=== PATIENT | male | born 1960 | race Caucasian/White ===

== ENCOUNTER 2023-07-21 16:04 | Emergency (ER) | payer MEDICAID, SELFPAY ==
[2023-07-21 16:11] VITALS: BP 186/92; PULSE 92; O2SAT 94
[2023-07-21 16:37] VITALS: BP 146/77; PULSE 86; RESP 16; TEMP 36.7; O2SAT 94; BMI 32.0
--- NOTE | 2023-07-21 16:41 | ED.GENADULT ---
HPI - General Adult General Chief complaint: Abdominal Pain Stated complaint: RLQ PAIN, BLOOD IN STOOL Time Seen by Provider: 07/21/23 21:39 Source: patient and old records reviewed Mode of arrival: EMS Limitations: no limitations History of Present Illness HPI narrative: 63 yo male with PMH of ETOH abuse here with c/o RLQ pain radiating into back then down leg for 1+ month he notes he was told it was his pancreas so he came today to get it checked out. He also notes he saw blood on toilet paper when he was straining MD complaint: abdominal pain Onset (ago): month(s) (1) Location: abdomen Radiation: back and distal Severity: mild Quality: aching Pain Consistency: intermittent Relieving factors: none Exacerbating factors: movement Associated symptoms: other (strained and saw blood on tissue) Treatments prior to arrival: none Related Data Allergies Allergy/AdvReac Type Severity Reaction Status Date / Time No Known Allergies Allergy Verified 07/21/23 16:43 Review of Systems Review of Systems: Constitutional : No Weight loss, No Fever, No Chills ENT/Mouth : No sore throat, No Rhinorrhea Eyes: No Swelling, No Redness Cardiovascular : No Chest Pain, No SOB, NoEdema Respiratory : No Cough, No Sputum, No Wheezing Gastrointestinal : no Nausea, no Vomiting, no Diarrhea, positive abdominal Pain, No Hematochezia, No Melena Genitourinary : No Dysuria, No Urinary Frequency, No Hematuria, No Urgency Musculoskeletal : No joint pain, No Myalgias, No Joint Swelling Skin : No Skin Lesions, No rash Neuro : No Weakness, No Numbness, No Dizziness, No Headache Psych : No Anxiety/Panic, No Depression All other systems reviewed and are negative. [facility] Past Medical History Attestation statement: The following information was validated with the patient. Source: old records reviewed Medical History Alcohol abuse Social History Social History Advance Directives: No Advance Directives Information Provided: No Physical Exam ED Vital Signs: Vital Signs - 24 hr 07/21/23 16:37 07/21/23 20:59 Temperature 98.0 F 98.0 F Pulse Rate 86 90 Respiratory Rate 16 16 Blood Pressure 146/77 H 167/75 H Pulse Oximetry 94 100 Oxygen Delivery Method Room Air Room Air BMI result Body Mass Index 32.0 Appearance: Alert. Oriented X3. No acute distress. Eyes: Pupils equal, round and reactive to light. ENT: Pharynx normal. Neck: Normal inspection. Neck supple. CVS: Normal heart rate and rhythm. Pulses normal. Respiratory: No respiratory distress. Breath sounds normal. Abdomen: Soft and nontender. Obese Skin: Skin warm and dry. Normal skin color. Normal skin turgor. Extremities: No lower extremity edema. No calf ttp Neuro: Oriented X 3. No motor deficit. No sensory deficit. Course Course Course Narrative: RME performed by Margret Villagomez PA-C. Patient is a 63 year old assigned male at presenting to the emergency department with low back pain and dark stools over the last few months. Detailed physical exam and review of systems are deferred to the pneumatic press hand. Labs and swabs ordered. Patient placed back in the waiting room pending room availability and results. Medical Decision Making Medical Decision Making [facility] Narrative: 63 yo male with no sig PMH here with c/o RLQ pain x 1 month worried it was his pancreas due to ETOH abuse he denies n/v/d notes he did strain yesterday and saw blood on toilet paper only at this time labs, CT scan fo rmass ordered. Patient declines imaging at this time and states he has to leave and reports he will return. Differential Diagnosis Differential Diagnoses: The differential diagnosis associated with the presentation includes abdominal pain, appendicitis, constipation, ETOH abuse, renal colic Admission/Observation Consideration of admission/observation: Escalation of care including admission/observation considered left prior to completing treatment needed to catch a bus Lab Data [facility] Lab Attestation statement: I reviewed the patient's lab results. 07/21/23 17:17 07/21/23 17:18 Labs: Lab Results 07/21/23 07/21/23 07/21/23 Range/Units 17:17 17:18 21:07 WBC 9.6 (4.8-10.8) X10*3/uL RBC 5.88 H (4.60-5.80) X10*6/uL Hgb 17.1 (14.0-18.0) g/dl Hct 50.8 (42.0-52.0) % MCV 86.4 (80.0-98.0) fL MCH 29.1 (27.0-33.0) pg MCHC 33.7 (31.0-36.0) g/dl RDW 13.8 (11.0-16.0) % Plt Count 223 (160-400) X10*3/uL MPV 9.0 L (9.4-12.4) fL Immature Gran % (Auto) 0.2 (0.0-0.4) % Neut % (Auto) 62.5 (45-73) % Lymph % (Auto) 31.0 (20-40) % Harvey % (Auto) 5.7 (2-11) % Eos % (Auto) 0.4 (0-4) % Baso % (Auto) 0.2 (0-2) % Lymph # (Auto) 3.0 (1.2-4.9) X10*3/uL Harvey # (Auto) 0.6 (0.1-1.2) X10*3/uL Eos # (Auto) 0.0 (0.0-0.4) X10*3/uL Baso # (Auto) 0.0 (0.0-0.2) X10*3/uL Abs Immat Gran (auto) 0.02 (0.00-0.03) X10*3/uL Absolute Neuts (auto) 6.0 (2.0-8.3) x10*3/uL Absolute Nucleated RBC 0.000 (0.0-0.012) X10*3/uL Nucleated RBC % (auto) 0.0 (0.0-0.2) /100WBC Sodium 143 (135-145) mmol/L Potassium 3.2 L (3.3-5.1) mmol/L Chloride 109 H (96-108) mmol/L Carbon Dioxide 22 (22-29) mmol/L Anion Gap 15 (12-20) BUN 10 (9-16) mg/dL Creatinine 1.12 (0.5-1.4) mg/dL Estim Creat Clear Calc 72.7 Estimated GFR > 60 Random Glucose 119 H (60-115) mg/dL Calcium 10.0 (8.4-10.2) mg/dL Magnesium 2.1 (1.6-2.6) mg/dL Total Bilirubin 0.5 (0.0-1.0) mg/dL AST 19 (5-37) U/L ALT 23 (0-40) U/L Alkaline Phosphatase 88 (39-117) U/L Total Protein 8.0 (6.5-8.0) g/dL Albumin 4.2 (3.5-5.0) g/dL Lipase 29 (8-78) U/L Urine Color Yellow Urine Appearance Clear Urine pH 5.5 (5.0-9.0) Ur Specific [place] 1.020 (1.005-1.025) Urine Protein Negative (Neg-Trace) mg/dL Urine Glucose (UA) Negative (Negative) mg/dL Urine Ketones Negative (Negative) mg/dL Urine Blood Negative (Negative) Urine Nitrite Negative (Negative) Ur Leukocyte Esterase Trace H (Negative) Urine RBC 0-2 (0-2) /HPF Urine WBC 0-5 (0-5) /HPF Ur Squamous Epith Cells 0-2 (0-2) /HPF Urine Bacteria None Seen (None Seen) Hyaline Casts 0-2 (0-2) /LPF Influenza Type A (PCR) NEGATIVE (Negative) Influenza Type B (PCR) NEGATIVE (Negative) RSV RNA Qual (PCR) NEGATIVE (Negative) SARS-CoV-2 RNA (RT-PCR) NEGATIVE (Negative) External Record Review External record reviewed: Inpatient record Discharge Plan Discharge Clinical Impression: Acute hypokalemia Abdominal pain Qualifiers: Abdominal location: right lower quadrant Qualified Code(s): R10.31 - Right lower quadrant pain Patient Disposition: Left W/O Completing Treatment Print Language: Ukrainian
[2023-07-21 17:23] LABS: MANUAL DIFF FLAG NO
[2023-07-21 17:28] LABS: Basophils Percent Auto 0.2 % (0-2); Eosinophils Percent Auto 0.4 % (0-4); Hematocrit 50.8 % (42.0-52.0); Hemoglobin 17.1 g/dl (14.0-18.0); Imm Gran Abs Auto 0.02 X10*3/uL (0.00-0.03); Imm Gran Pct Auto 0.2 % (0.0-0.4); Mean Corpuscular HGB Conc 33.7 g/dl (31.0-36.0); Mean Corpuscular Hemoglobin 29.1 pg (27.0-33.0); Mean Corpuscular Volume 86.4 fL (80.0-98.0); Monocytes Absolute Auto 0.6 X10*3/uL (0.1-1.2); Monocytes Percent Auto 5.7 % (2-11); Neutrophils Percent Auto 62.5 % (45-73); Platelet Count 223 X10*3/uL (160-400); Red Blood Count 5.88 X10*6/uL (4.60-5.80); Red Cell Distribution Width 13.8 % (11.0-16.0); White Blood Count 9.6 X10*3/uL (4.8-10.8)
[2023-07-21 17:40] LABS: Alanine Aminotransferase 23 U/L (0-40); Albumin Level 4.2 g/dL (3.5-5.0); Alkaline Phosphatase 88 U/L (39-117); Anion Gap 15 (12-20); Aspartate Amino Transferase 19 U/L (5-37); Bilirubin Total 0.5 mg/dL (0.0-1.0); Blood Urea Nitrogen 10 mg/dL (9-16); Carbon Dioxide 22 mmol/L (22-29); Chloride 109 mmol/L (96-108); Creatinine Clr Calc Pharmacy 72.7; Estimated Glomerular Filt Rate > 60; Glucose Random 119 mg/dL (60-115); Magnesium 2.1 mg/dL (1.6-2.6); Potassium 3.2 mmol/L (3.3-5.1); Sodium 143 mmol/L (135-145)
[2023-07-21 18:03] LABS: Influenza A PCR NEGATIVE (Negative); Influenza B PCR NEGATIVE (Negative); Resp Syncy Virus RNA Qual PCR NEGATIVE (Negative); SARS COV2 PCR INHOUSE NEGATIVE (Negative)
[2023-07-21 20:59] VITALS: BP 167/75; PULSE 90; RESP 16; TEMP 36.7; O2SAT 100
[2023-07-21 21:05] LABS: Lipase 29 U/L (8-78)
[2023-07-21 21:20] LABS: Appearance Urine Clear; Color Urine Yellow; Glucose Urine UA Negative (Negative); Leukocyte Esterase Urine Trace (Negative); Nitrite Urine Negative (Negative); PH 5.5 (5.0-9.0); UMIC TRIGGER UACC YES; Urine Blood Negative (Negative); Urine Ketones Negative (Negative); Urine Protein Negative (Neg-Trace)
[2023-07-21 21:28] LABS: Bacteria Urine None Seen (None Seen); Hyaline Casts Urine 0-2 /LPF (0-2); RBC Urine 0-2 /HPF (0-2); Squamous Epithelial Cell Urine 0-2 /HPF (0-2); WBC Urine 0-5 /HPF (0-5)
--- NOTE | 2023-07-21 22:10 | PC.NURSE ---
pt told provider he had to leave due to having to catch the bus
== END 2023-07-21 22:24 | disposition left against medical advice (07) ==
PROVIDERS: Physician Assistant Medical; Emergency Provider Emergency Medicine
DX: R10.31 Right lower quadrant pain (principal); E87.6 Hypokalemia; F10.10 Alcohol abuse, uncomplicated
CPT/HCPCS: 0241U; 80053; 81001; 83690; 83735; 85025; 99283; 99284

== ENCOUNTER 2023-07-26 18:16 | Outpatient (REF) | payer MEDICAID, SELFPAY ==
[2023-07-26 18:34] LABS: Appearance Urine Turbid; Color Urine Yellow; Glucose Urine UA Negative (Negative); Leukocyte Esterase Urine Negative (Negative); Nitrite Urine Negative (Negative); PH 5.5 (5.0-9.0); Specific Gravity - Urine >= 1.030 (1.005-1.025); Urine Blood Negative (Negative); Urine Ketones Negative (Negative); Urine Protein Negative (Neg-Trace)
[2023-07-26 18:37] LABS: Bacteria Urine None Seen (None Seen); Hyaline Casts Urine 0-2 /LPF (0-2); Squamous Epithelial Cell Urine 0-2 /HPF (0-2); WBC Urine 0-5 /HPF (0-5)
[2023-07-26 18:51] LABS: Other Crystals Urine Present; RBC Urine 0-2 /HPF (0-2)
== END 2023-07-26 18:17 | disposition home or self-care (01) ==
LOC: HO.HHCLNP 18:16
PROVIDERS: Visit Provider Emergency Medicine
DX: R10.31 Right lower quadrant pain (principal)
CPT/HCPCS: 81001

== ENCOUNTER 2023-08-09 11:14 | Outpatient (REF) | payer MEDICAID, SELFPAY ==
--- NOTE | ~2023-08-09 | XR_ITS ---
EXAMINATION: XR LUMBOSACRAL SPINE CLINICAL INFORMATION: Arthritis of right hip, acute right-side low back pain without sciatica. Patient states pain for 2 months. COMPARISON: None available. TECHNIQUE: 5 views of the lumbosacral spine. FINDINGS: Mild dextroscoliosis of the lumbar spine. Bilateral sacroiliac joints are symmetric with mild degenerative changes. Atherosclerotic aortic calcifications. Facet arthritis in the lower lumbar spine. Multilevel lumbar spondylosis with mild loss of disc space height at L4-L5 and L5-S1. XR/XR lumbar spine 2-3V IMPRESSION: 1. Multilevel lumbar spondylosis with mild loss of disc space height at L4-L5 and L5-S1. 2. Facet arthritis in the lower lumbar spine.
== END 2023-08-09 11:15 | disposition home or self-care (01) ==
LOC: HO.HHCX 11:14
PROVIDERS: Visit Provider Internal Medicine
DX: M54.50 Low back pain, unspecified (principal)
CPT/HCPCS: 72100

== ENCOUNTER 2023-08-10 11:18 | Outpatient (REF) | payer MEDICAID, SELFPAY ==
[2023-08-10 13:30] LABS: MANUAL DIFF FLAG NO
[2023-08-10 13:50] LABS: Basophils Percent Auto 0.4 % (0-2); Eosinophils Absolute Auto 0.1 X10*3/uL (0.0-0.4); Eosinophils Percent Auto 1.1 % (0-4); Hematocrit 50.6 % (42.0-52.0); Hemoglobin 16.3 g/dl (14.0-18.0); Imm Gran Abs Auto 0.01 X10*3/uL (0.00-0.03); Imm Gran Pct Auto 0.1 % (0.0-0.4); Lymphocytes Absolute Auto 2.5 X10*3/uL (1.2-4.9); Mean Corpuscular HGB Conc 32.2 g/dl (31.0-36.0); Mean Corpuscular Hemoglobin 28.6 pg (27.0-33.0); Mean Corpuscular Volume 88.8 fL (80.0-98.0); Mean Platelet Volume 10.1 fL (9.4-12.4); Monocytes Absolute Auto 0.5 X10*3/uL (0.1-1.2); Monocytes Percent Auto 6.1 % (2-11); Neutrophils Absolute Auto 4.3 x10*3/uL (2.0-8.3); Neutrophils Percent Auto 58.3 % (45-73); Platelet Count 231 X10*3/uL (160-400); Red Cell Distribution Width 13.8 % (11.0-16.0); White Blood Count 7.4 X10*3/uL (4.8-10.8)
[2023-08-10 14:16] LABS: Amylase 57 U/L (28-100); Cholesterol 211 mg/dL (<200); Gamma Glutamyl Transpeptidase 58 U/L (11-51); HDL Cholesterol 28 mg/dL (>40); TSH reflex Free T4 1.06 uIU/mL (0.32-4.0); Triglycerides 421 mg/dL (<150); Vitamin D 25-OH Total 20.1 ng/mL (>30)
[2023-08-10 14:37] LABS: Lipase 31 U/L (8-78)
[2023-08-10 15:30] LABS: Reflex LDLD? Yes
[2023-08-11 08:24] LABS: HBS Num1 > 1000.00 mIU/mL (0-7.99); HBc Num1 2.14 S/CO (0.00-0.79); HBsAGNum1 0.37 S/CO (0.00-0.99); Hepatitis A Antibody IgM 0.53 Index (0-0.79); Hepatitis B Surface Antigen Negative (Negative); ~HepC Num1 0.07 S/CO (0.00-0.79); ~Hepatitis A Antibody IgM Nonreactive (Nonreactive); ~Hepatitis B Surface Antibody REACTIVE (Nonreactive); ~Hepatitis C Antibody Nonreactive (Nonreactive)
[2023-08-11 08:53] LABS: LDL Cholesterol Direct 80 mg/dL (<100)
[2023-08-11 09:28] LABS: HBc Num2 2.11 S/CO; Hepatitis B Core Antibody Reactive (Nonreactive)
== END 2023-08-10 11:19 | disposition home or self-care (01) ==
LOC: HO.HHCL 11:18
PROVIDERS: Emergency Medicine; Visit Provider Internal Medicine
DX: R10.31 Right lower quadrant pain (principal); F10.90 Alcohol use, unspecified, uncomplicated; M16.11 Unilateral primary osteoarthritis, right hip; I10 Essential (primary) hypertension
CPT/HCPCS: 36415; 80061; 82150; 82306; 82977; 83690; 83721; 84443; 85025; 86704; 86706; 86709; 86803; 87340

== ENCOUNTER 2023-09-19 12:21 | Outpatient (REF) | payer MEDICAID, SELFPAY ==
--- NOTE | ~2023-09-19 | XR_ITS ---
EXAMINATION: XR SHOULDER, LEFT CLINICAL INFORMATION: Arthritis of left shoulder, left shoulder pain. COMPARISON: None available. TECHNIQUE: AP external rotation, Grashey, scapular Y, and axillary views of the left shoulder. FINDINGS: The bones are intact. No fracture. Glenohumeral and acromioclavicular alignment is anatomic with mild narrowing of the glenohumeral joint space. There is mild to moderate narrowing of the acromioclavicular joint. No abnormal soft tissue calcifications. XR/XR shoulder LT min 2V IMPRESSION: Mild to moderate degenerative change of the acromioclavicular joint and mild degenerative change of the glenohumeral joint.
== END 2023-09-19 12:22 | disposition home or self-care (01) ==
LOC: HO.HHCX 12:21
PROVIDERS: Visit Provider Internal Medicine
DX: M19.012 Primary osteoarthritis, left shoulder (principal)
CPT/HCPCS: 73030

== ENCOUNTER 2023-10-04 13:48 | Outpatient (AMB) | payer MEDICAID, SELFPAY ==
--- NOTE | 2023-10-04 13:52 | MHC.OFFVIS ---
Vital Signs 10/04/23 14:06 Height 5 ft 6 in Weight 195 lb 6 oz BMI 31.5 BP 150/80 H Blood Pressure Location Lt brachial Position Sitting Respiration 16 Pulse 94 Pulse Source Pulse Oximeter Pulse Oximetry (%) 95 Oxygen Delivery Method Room Air Intake Visit Reasons: Right Hip Intake Note: Patient comes in for initial visit was referred by primary care. Reports pain 11/24. Allergies No Known Allergies Allergy (Verified 07/21/23 16:43) HPI Comments Details: Antione is very pleasant 63 years old gentleman who presents in my office with complains on pain in the projection of the right sacroiliac joint as well as pain in the left shoulder. He reports that his pain started 7 years ago denies any inciting events. He denies connection to car accident or work injury. He can not sleep normally because of his pain he can not do activities of daily living he can not take care of himself he can not function normally he is on permanent disability. He reports his pain is worse at night. He reports that in terms of tissue damage his pain is sharp, cramping, aching, radiating, and tight sensation. He is taking Tylenol for his pain. He never had any chiropractic manipulations he had physical therapy with no help. X-ray available in the chart and demonstrate moderate bilateral sacroiliac joint changes. The x-ray of the shoulder available in our chart in [facility], however it was not read yet. His past medical history significant for hypertension asthma chronic pancreatitis and chronic liver disease he denies any surgery or prolonged hospitalization. He smokes cigarettes half pack a day for the past 20 years. He drinks lots of soda he denies drinking alcohol he says that he stopped 3 years ago. He denies recreational drugs. [facility] Medical History Alcohol abuse Review of Systems Const Denies chills ENT Reports Normal hearing present Card Denies chest pain, Denies chest pain at rest and Denies chest pain with activity Resp Denies chest congestion, Denies cough and Denies hemoptysis GI Denies abdominal pain Denies urinary incontinence Musc Denies as per HPI and Denies back pain Neuro Reports Normal hearing present, Denies Abnormal speech present, Denies confusion and Denies Sensory deficit (Neuro) Psych Denies confusion, Denies depression and Denies irritability Physical Exam Const General: no acute distress; No confusion Orientation/consciousness: patient oriented x3 and No confusion Eyes General: appearance normal, both eyes and all related structures Pupils: Equal, round and reactive pupils present EOM: EOMs intact bilaterally Neck Neck: Yes full ROM Chest Chest palpation & inspection: normal inspection of the chest Resp Effort & Inspection: normal respiratory effort, able to speak in complete sentences, normal respiratory pattern, no audible wheezes and no cough Cardio Jugular venous distension: no JVD GI Inspection: Yes normal to inspection Back/Spine/Pelvis Other: Able to stand on bilateral tiptoes in bilateral heels without difficulty able to flex himself forward to about 15 degrees only due to severe pain in the lower lumbar spine. Able to flex himself backwards without difficulty. Mamadou test is positive on the right, Gaenslen test is positive on the right, pelvic compression test is positive on the right but pelvic distraction test is negative. Neuro General: patient oriented x3, gait normal and No confusion Cranial nerves: Yes CN's II-XII intact bilaterally, Yes Equal, round and reactive pupils present, Yes Normal hearing present and Yes Ability to bilaterally elevate shoulders present Speech: No Abnormal speech present Gait exam (Neuro): Normal gait present Motor exam (neuro): 5/5 motor strength present throughout Sensory Exam: No Sensory deficit (Neuro) Extrem Other: Limited range of motion of the left shoulder unable to lift arm above the shoulder line. The rest of the range of motion is not affected. General: No pedal edema Psych Speech and movement: Normal speech and movement present Affect: normal affect Attitude: cooperative Thought process: Normal thought process present Thought content: Normal thought content present Insight: Good insight present (Psych) Judgement: Good judgement present (Psych) Results Reviewed Results Reviewed: On the x-ray of the lumbar spine available from [facility] there are mild the degenerative changes in the projection of bilateral sacroiliac joints as well as degenerative changes in the lumbar spine. Assessment & Plan Assessment & Plan (1) Osteoarthritis of left shoulder: Code(s): M19.012 - Primary osteoarthritis, left shoulder Category: Medical (2) Sacroiliitis: Code(s): M46.1 - Sacroiliitis, not elsewhere classified Category: Medical (3) Chronic pain syndrome: Code(s): G89.4 - Chronic pain syndrome Category: Medical (4) Sacroiliac joint dysfunction of right side: Code(s): M53.3 - Sacrococcygeal disorders, not elsewhere classified Category: Medical Plan The x-ray of the left shoulder is made for this patient however it has not read by radiologist. We will leave it until the radiologist will read the x-ray however I suspect that there will be some degenerative changes of the left glenohumeral joint. As of the right sacroiliitis I will schedule him for diagnostic sacroiliac joint injection and I will offer him further on treatment for sacroiliac joint injection. Unfortunately patient is a smoker and our options move could be limited if he could stop smoking we could consider PNS of sacroiliac joint as well as fusion of the sacroiliac joint. Coding Level of Care Code New Pt Level 3 (09186) Diagnoses Osteoarthritis of left shoulder M19.012 Sacroiliitis M46.1 Chronic pain syndrome G89.4 Sacroiliac joint dysfunction of right side M53.3
[2023-10-04 14:06] VITALS: BP 150/80; PULSE 94; RESP 16; O2SAT 95; BMI 31.5
== END 2023-10-04 14:13 | disposition home or self-care (01) ==
PROVIDERS: PCP Internal Medicine; Referring Provider Internal Medicine; Visit Provider Anesthesiology
DX: M19.012 Primary osteoarthritis, left shoulder (principal); M46.1 Sacroiliitis, not elsewhere classified; G89.4 Chronic pain syndrome; M53.3 Sacrococcygeal disorders, not elsewhere classified
CPT/HCPCS: 99203

== ENCOUNTER → 2023-10-04 13:48 | Outpatient (BNVA) | payer MEDICAID, SELFPAY | PROVIDERS: PCP Internal Medicine; Visit Provider Anesthesiology | DX: M19.012 Primary osteoarthritis, left shoulder (principal); M46.1 Sacroiliitis, not elsewhere classified; M53.3 Sacrococcygeal disorders, not elsewhere classified; G89.4 Chronic pain syndrome | CPT/HCPCS: 99202 ==

== ENCOUNTER 2023-12-14 10:34 | Outpatient (AMB) | payer MEDICAID, SELFPAY ==
[2023-12-14 10:52] VITALS: BMI 31.5
--- NOTE | 2023-12-14 10:52 | MHC.OFFVIS ---
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 Patient reports that he has had ongoing left shoulder pain for about 2 years now. He has tried and failed physical therapy with no relief. He feels pain with he raises the arm above shoulder, behind the back as well as with lifting, pushing and pulling. 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 Patient reports that he has had ongoing left shoulder pain for about 2 years now. He has tried and failed physical therapy with no relief. He feels pain with he raises the arm above shoulder, behind the back as well as with lifting, pushing and pulling. [facility] Medical History Alcohol abuse Social History (Updated 12/14/23 @ 10:54 by Naye Reynoso [facility]) Current occupational status: unemployed Physical Exam Vital Signs: BMI result Body Mass Index 31.5 Extrem Other: Positive Chacon and Neer Pain in the mid arc of abduction Negative empty can Full passive range of motion Office Procedures Joint Injection/Aspiration Joint Injection/Aspiration Details: Injected 1 mL of Decadron and 3 mL 1% lidocaine and 3 mL of 0.25% Marcaine. Site was prepped using aseptic technique. Patient tolerated the procedure well. Primary Site: left shoulder Approach Used: posterolateral Coding 62804 - Large joint Procedure code (CPT) selection complete Results Reviewed Results Reviewed: I personally reviewed relevant radiographs. Mild glenohumeral OA Assessment & Plan Assessment & Plan (1) Rotator cuff impingement syndrome: Code(s): M75.40 - Impingement syndrome of unspecified shoulder Category: Medical Plan: This is a 63-year-old gentleman with rotator cuff and pin Espino syndrome of the left shoulder. He has tried physical therapy with no benefit. I recommend injection. Injection was performed today without difficulty. If he has no resolution we can consider further imaging or repeat injections in at least 3 months. Coding Level of Care Code New Pt Level 3 (26488) Diagnoses Rotator cuff impingement syndrome M75.40 CPT Codes Coding - 02720 Large joint: 85444 - Large joint ([id number])
== END 2023-12-14 12:11 | disposition home or self-care (01) ==
PROVIDERS: PCP Internal Medicine; Visit Provider Orthopaedic Surgery
DX: M75.42 Impingement syndrome of left shoulder (principal)
CPT/HCPCS: 20610; 99203

== ENCOUNTER → 2023-12-14 10:34 | Outpatient (BNVA) | payer MEDICAID, SELFPAY | PROVIDERS: PCP Internal Medicine; Visit Provider Orthopaedic Surgery | DX: M75.40 Impingement syndrome of unspecified shoulder (principal) | CPT/HCPCS: 20610; 99202; J0665; J1100 ==

== ENCOUNTER 2023-12-20 10:12 | Outpatient (REF) | payer MEDICAID, SELFPAY ==
[2023-12-20 11:52] LABS: HBS Num1 > 1000.00 mIU/mL (0-7.99); HBc Num1 1.89 S/CO (0.00-0.79); HBsAGNum1 0.24 S/CO (0.00-0.99); Hepatitis B Surface Antigen Negative (Negative); ~HepC Num1 0.09 S/CO (0.00-0.79); ~Hepatitis A Antibody IgM Nonreactive (Nonreactive); ~Hepatitis B Surface Antibody REACTIVE (Nonreactive); ~Hepatitis C Antibody Nonreactive (Nonreactive)
[2023-12-20 12:50] LABS: HBc Num2 1.74 S/CO; Hepatitis B Core Antibody Reactive (Nonreactive)
== END 2023-12-20 10:13 | disposition home or self-care (01) ==
LOC: HO.HHCL 10:12
PROVIDERS: Visit Provider Internal Medicine
DX: E78.1 Pure hyperglyceridemia (principal)
CPT/HCPCS: 36415; 86704; 86706; 86709; 86803; 87340

== ENCOUNTER 2025-02-25 13:30 | Outpatient (REF) | payer MEDICAID, SELFPAY ==
--- OUTSIDE RECORDS SUMMARY | 2025-02-25 15:06 | XMS_ITS | Clinical Summary ---
Author Organization [employer] Address [address] [facility] [address] [place] [address] Care Team Providers Care Tank Bottom Assembler Name Role Phone Lakeshia Smith MD Primary Care Provider + Allergies Active Allergy Reactions Criticality Noted Date Comments Pineapple Angioedema 07/26/2023 Medications Blood Pressure Monitoring (Blood Pressure Cuff) misc Use daily as prescribed 1 each 4 Active Acetaminophen (Mapap) 500 MG capsuleIndicati ons:Arthrosis of left shoulder TAKE 1 TO 2 CAPSULES BY MOUTH EVERY 6 HOURS NEEDED FOR PAIN OR FEVER 30 capsule 5 Active Additional Information Patient not taking.Reported on 10/08/2024 lisinopril (Prinivil) 10 MG tablet Take 1 tablet (10 mg) by mouth Once per day. 90 tablet 5 10/09/19 26 Active fenofibrate (Tricor) 48 MG tablet Take 1 tablet (48 mg) by mouth Once per day. 90 tablet 5 10/09/19 26 Active omeprazole (PriLOSEC) [address] capsule TAKE 1 CAPSULE BY MOUTH EVERY DAY 90 capsule 1 5 Active Active Problems Problem Noted Date Diagnosed Date Vitreous floaters of left eye 10/08/2024 Assessment & Plan (10/08/2024 9:46 PM EDT): Pt seems to be describing 2 weeks of left eye floater -I called vision center [facility] today and pt got apt for tomorrow to be seen for compete vision exam -alarm signs and symptoms discussed w pt Sore throat 12/20/2023 Assessment & Plan (12/20/2023 10:27 AM EDT): - recommended to use Tylenol PRN and gargle with lul tea - gave pt covid testing kit if symptoms persist more than 3 days Illiteracy 09/15/2023 Assessment & Plan (09/15/2023 2:29 PM EDT): Patient brings correspondence that he thinks is important to a nearby resource center. Not interested on learning to read at this time, we'll continue to encourage literacy. Arthrosis of left shoulder 09/14/2023 Assessment & Plan (12/20/2023 10:25 AM EDT): - mildly improving status post steroid injection - recommended to do home PT exercises daily, apply heat to affected area - use Tylenol PRN and f/u with orthopedics Assessment & Plan (09/14/2023 10:53 PM EDT): Order Xrays and refer to orthopedics. Hypertriglyceridemia 08/14/2023 Assessment & Plan (09/14/2023 10:51 PM EDT): Tolerates tricor, will check LFTs today and adjust if needed. We discussed re rx options. Recommended moderate amount of exercise and increase consumption of fruit, vegetables, fish and high fiber foods. Should decrease consumption of highly saturated fats or trans fats. Vitamin D deficiency 08/14/2023 Abdominal pain 08/09/2023 Assessment & Plan (08/10/2023 8:55 AM EDT): Most likely PUD Restart omeprazole x 30d and fu May need H.Pilory check/ GI? Arthritis of right hip 08/09/2023 Assessment & Plan (12/20/2023 10:25 AM EDT): - recurrent. awaiting appt. for steroid injection from the pain clinic - I gave pt clinic information to call and f/u with appointment Assessment & Plan (09/14/2023 10:47 PM EDT): Has DJD, he did PT many years ago, doesn't want to go back. Refer to pain clinic Take tylenol prn Assessment & Plan (08/10/2023 8:57 AM EDT): Recommended tylenol, stretching exercises Order Xray and consider PT at next appt if sxs are not improved Anxiety and depression 07/26/2023 Assessment & Plan (09/14/2023 10:50 PM EDT): Doing well on meds, continue fu with psych prescriber, BUFFING [employer]EL [employer]AK[employer] Hugo Avoid use of ETOH or other recreational substances Primary hypertension 07/26/2023 Assessment & Plan (10/08/2024 9:46 PM EDT): From exam no major abnormal eye exam findings , normal visual page , normal eye movements , AMENA,no eye pain w palpation , normal complete neuro exam Mild elevated BP today -not took BP med today -advised to take meds consistently -refilled BP and cholesterol meds today and advised to f w PCP Assessment & Plan (09/14/2023 10:46 PM EDT): Uncontrolled, it could be related to LBP No change in meds today, will refer to orthopedics and fu BP Take Tylenol lprn for pain Assessment & Plan (08/10/2023 8:56 AM EDT): Uncontrolled. He's off meds Restart lisinopril at 10mg and fu in 4w with labs Counseled re low salt diet/increase moderate physical activity. Check home BP BIW and prn CP/ANDRES/PARSONS Counseled to quit smoking Alcohol use disorder 07/26/2023 Assessment & Plan (12/20/2023 10:16 AM EDT): - he has been sober for 1+ year, feels safe at home and is able to reach out for safety - pt will f/u PRN, pt will reach out to volleyball assistant coach when needed Assessment & Plan (08/10/2023 8:58 AM EDT): Sober x 3mo, sp Detox at [facility] . Declined AUD program referral Counseled re AA meetings FU next appt to address MH referral Encounters Date Type Department Care Team Description 01/05/2025 Refill [facility] MEDICINE [address] [place] [address] Lakeshia Smith MD from Last 3 Months Family History Medical History Relation Name Comments Gastric cancer Father Diabetes Mother htn Mother Relation Name Status Comments Father Mother Alive Social History Tobacco Use Types Packs/Day Years Used Date Smoking Tobacco: Every Day Cigarettes 1 45 Passive Smoke Exposure: Past Smokeless Tobacco: Never Tobacco Cessation:Ready to Q uit: Not Asked; Counseling Given: Not Answered Alcohol Use Standard Drinks/Week Comments Not Currently 0 (1 standard drink = 0.6 oz pur e alcohol) former abuse Depression Answer Date Recorded Patient Health Questionnaire-9 Score 9 08/09/2023 Patient Health Questionnaire-9 Score 9 08/09/2023 Last PHQ-9: Questionnaire Data Not on file 0 08/09/2023 Housing Stability Answer Date Recorded What is your housing situation today? I have lisa paulino 08/02/[address] you li ve. Do you have problems with any of the following? None of the above 08/02/2023 Food Insecurity Answer Date Recorded Within the past 12 months, y ou worried that your food would run out before you got money to buy more: Never True 08/02/2023 Within the past 12 months,th e food you bought just didn't last and you didn't have enough money to get more: Never True Transportation Answer Date Recorded In the past 12 months, has l ack of transportation kept you from medical appts, meetings, work or from getting things needed for daily living? No 08/02/2023 Utilities Answer Date Recorded In the past 12 months, has t he electric, gas, oil or water company threatened to shut off services in your home? No 08/02/2023 Depression Answer Date Recorded Patient Health Questionnaire-2 Score 6 08/09/2023 Sex and Gender Information Value Date Recorded Sex Assigned at Male 06/27/2023 12:46 PM EDT Legal Sex Male 12:41 PM EDT Gender Identity Male 06/27/2023 12:46 PM EDT Sexual Orientation Straight 06/27/2023 12 :46 PM EDT Last Filed Vital Signs Vital Sign Reading Time Taken Comments Blood Pressure 140/88 10/08/2024 11:32 AM EDT Pulse 86 10/08/2024 11:32 AM EDT Temperature 36.1 C (97 F) 10/08/2024 11:32 AM EDT Respiratory Rate 17 10/08/2024 11:32 AM EDT Oxygen Saturation 96% 12/20/2023 9:45 AM EDT Inhaled Oxygen Concentration - - Weight 88.5 kg (195 lb 3.2 oz) 10/08/2024 11:32 AM EDT Height 167.6 cm (5' 6 ) 10/08/2024 11:32 AM EDT Body Mass Index 31.51 10/08/2024 11:32 AM EDT Plan of Treatment Health Maintenance Due Date Last Done Comments CT Colonography 1962 Colonoscopy 1962 Colorectal Cancer Screening 1962 FIT DNA/Cologuard 1962 FIT 1962 FOBT 1962 Sigmoidoscopy 1962 Disability Screening 1962 Alcohol/Substance Use Screening 1974 DTaP/Tdap/Td Vaccines (1 - Tdap) 1981 Pneumococcal Vaccine: 50+ Years (1 of 2 - PCV) 1981 Lung Cancer Screening 01/09/2012 Zoster Vaccines (1 of 2) 01/09/2012 Depression Monitoring 02/08/2024 08/09/2023 , 08/09/2023 SDOH Screening 08/01/2024 08/02/2023 COVID-19 Vaccine (1 - 2023-2 5 season) 2024 Influenza Vaccine (#1) 2024 Tobacco Screening 10/14/2025 10/14/2024 Lipid Panel 08/09/2028 08/10/2023, 08/10/2023 RSV Patients and Patients Aged 60 years or older (1 - 1-dose 75+ series) 2037 HIV Screening Completed 11/08/2022 Hepatitis C Screening Completed 12/20/2023 , 08/10/2023 HIB Vaccines Aged Out No longer eligi ble based on patient's age to complete this topic HPV Vaccines Aged Out No longer eligi ble based on patient's age to complete this topic Hepatitis A Vaccines Aged Out No long er eligible based on patient's age to complete this topic Hepatitis B Vaccines Aged Out No long er eligible based on patient's age to complete this topic IPV Vaccines Aged Out No longer eligi ble based on patient's age to complete this topic Meningococcal B Vaccine Aged Out No l onger eligible based on patient's age to complete this topic Meningococcal Vaccine Aged Out No ed andres eligible based on patient's age to complete this topic RSV under 20 months Aged Out No longe r eligible based on patient's age to complete this topic Rotavirus Vaccines Aged Out No longer eligible based on patient's age to complete this topic Procedures Procedure Name Priority Date/Time Associated Diagnosis Comments HEPATITIS PANEL, GENERAL Routine 12/20/2023 10:15 AM EDT Hypertriglyceridemia LIPID PANEL WITH REFLEX TO DIRECT LDL Routine 08/10/2023 11:20 AM EDT Primary hypertension from Last 3 Months or Most Recently Relevant to Health Maintenance Results * Hepatitis Panel, General (12/20/2023 10:15 AM EDT) Hepatitis A IgM Nonreactive Nonreactive [facility] Comment:IgM antibodies to ANDRES V not detected; does not exclude earlyacute or recovered HAV infection. ~Hepatitis B Surface Antibody REACTIVE Nonreactive [facility] Comment:REACTIVE: > 11.99 mI U/mL Hepatitis B Core Antibody Reactive Nonreactive [facility] Comment:Presumptive evidence of anti-HBc. Hepatitis C Antibody Nonreactive Nonreactive [facility] Comment:Antibodies to HCV no t detected; does not exclude early acuteHCV infection. Hepatitis B Surface Ag Negative Negative [facility] Blood 12/20/2023 10:1 5 AM EDT 12/20/2023 11:03 AM EDT us Lakeshia Smith MD LAB BLOOD ORDERABLES Fin al Result [facility] [address] [place] [phone] * (ABNORMAL) Lipid Panel with Reflex to Direct LDL (08/10/2023 11:20 AM EDT) Triglycerides 421(H) <150 mg/dL [facility] Comment:Desirable Triglyceri de: less than 150 mg/dLBorderline High Triglyceride 150-199 mg/dLHigh Triglyceride: 200-499 mg/dLVery High Triglyceride: greater than or equal to 5OO mg/dL Cholesterol 211(H) <200 mg/dL [facility] Comment:Desirable Cholestero l: less than 200 mg/dLBorderline High Cholesterol: 200-239 mg/dLHigh Cholesterol: greater than 239 mg/dL LDL Cholesterol Calculated TNP <100 mg/dL [facility] Comment:Unable to calculate the LDL. The formula of Friedwald,Lynn, and Cassandra is only valid if the triglycerides areless than 400 mg/dl. HDL Cholesterol 28(L) >40 mg/dL [facility] Comment:Desirable HDL: great er than 40 mg/dL Note: This HDL assay may give artificially low results in patients with liver disease. Blood 08/10/2023 11:2 0 AM EDT 08/10/2023 1:28 PM EDT us Lakeshia Smith MD LAB BLOOD ORDERABLES Fin al Result [facility] [address] [place] [phone] from Last 3 Months or Most Recently Relevant to Health Maintenance Insurance [facility] C3 Care Teams Tank Bottom Assembler Relationship Specialty Start Date End Date Lakeshia Smith MD [address] [place] [phone] PCP - General Internal Medicine 08/09/23
--- OUTSIDE RECORDS SUMMARY | 2025-02-25 15:06 | XMS_ITS | Encounter Summary ---
Author Organization [employer] Address [address] [place] [address] Care Team Providers Care Rate Clerk Name Role Phone Lakeshia Smith MD Primary Care Provider + Reason for Visit * Reason Comments Med Refill Encounter Details Date Type Department Care Team (Late st Contact Info) Description 10/08/2024 Refill [facility] MED[facility]INE [address] [place], [place] [phone] Lakeshia Smith MD [address] [place], [place] [phone] Social History Tobacco Use Types Packs/Day Years Used Date Smoking Tobacco: Every Day Cigarettes 1 45 Passive Smoke Exposure: Past Smokeless Tobacco: Never Alcohol Use Standard Drinks/Week Comments Not Currently [...] Orientation Straight 06/27/2023 12 :46 PM EDT documented as of this encounter Plan of Treatment Not on file documented as of this encounter Visit Diagnoses Not on filedocumented in this encounter Additional Health Concerns Assessment Noted Time PHQ-9 Depression Total Score: 9 08/09/19 9:47 AM EDT documented as of this encounter Care Teams Rate Clerk Relationship Specialty Start Date End Date Lakeshia Smith MD [address] [place] [phone] PCP - General Internal Medicine 08/09/23 documented as of this encounter
--- OUTSIDE RECORDS SUMMARY | 2025-02-25 15:06 | XMS_ITS | Encounter Summary ---
Author Organization [employer] Address [address] [place] [address] Care Team Providers Care Farebox Repairer Name Role Phone Lakeshia Smith MD Primary Care Provider + Reason for Visit * Reason Onset Date Comments Appointment Request 10/04/2024 Encounter Details Date Type Department Care Team ([facility] st Contact Info) Description 10/04/2024 Telephone [facility] MED[facility]INE [address] [place], [place] [phone] Lakeshia Smith MD [address] [place], [place] [phone] Appointment Request Social History Tobacco Use Types Packs/Day Years [...] PM EDT documented as of this encounter Miscellaneous Notes * Telephone Encounter - Anaya Torres - 10/04/2024 10:51 AM EDT Tc from pt requesting r/s 09/27 shingrix appointment. documented in this encounter Plan of Treatment Not on file documented as of this encounter Visit Diagnoses Not on filedocumented in this encounter Additional Health Concerns Assessment Noted Time PHQ-9 Depression Total Score: 9 08/09/19 9:47 AM EDT documented as of this encounter Care Teams Farebox Repairer Relationship Specialty Start Date End Date Lakeshia Smith MD [address] [place] [phone] PCP - General Internal Medicine 08/09/23 documented as of this encounter
--- OUTSIDE RECORDS SUMMARY | 2025-02-25 15:06 | XMS_ITS | Patient Health Record ---
Author Organization [facility] Address [address] [place] [address] Care Team Providers Care Nutrition Counselor Name Role Phone NO, PCP Primary Care Provider Chelo Delgado Unavailable Reason For Referral No Information Plan Of Treatment No Information Insurance Providers Payer Name Payer Address Payer Phone Subscriber Number Group Number Insured Name Patient Relationship to Insured Coverage Start Date Coverage End Date [facility] [employer] [address] [place] [phone] [id number] Antione Renee Self - patient is the insured MD Medicaid Standard [address] [place] [address] [id number] Antione Renee Self - patient is the insured
[2025-02-25 16:12] LABS: MANUAL DIFF FLAG NO
[2025-02-25 16:32] LABS: Hematocrit 51.8 % (42.0-52.0); Hemoglobin 17.0 g/dl (14.0-18.0); Imm Gran Abs Auto 0.02 X10*3/uL (0.00-0.03); Imm Gran Pct Auto 0.2 % (0.0-0.4); Lymphocytes Absolute Auto 2.9 X10*3/uL (1.2-4.9); Mean Corpuscular HGB Conc 32.8 g/dl (31.0-36.0); Mean Corpuscular Hemoglobin 29.1 pg (27.0-33.0); Mean Corpuscular Volume 88.7 fL (80.0-98.0); NRBC Abs Auto 0.000 X10*3/uL (0.0-0.012); NRBC Pct Auto 0.0 /100WBC (0.0-0.2); Platelet Count 211 X10*3/uL (160-400); Red Blood Count 5.84 X10*6/uL (4.60-5.80); White Blood Count 8.6 X10*3/uL (4.8-10.8)
[2025-02-25 16:56] LABS: Alanine Aminotransferase 34 U/L (0-40); Albumin Level 4.3 g/dL (3.5-5.0); Alkaline Phosphatase 86 U/L (39-117); Anion Gap 13 (12-20); Aspartate Amino Transferase 31 U/L (5-37); Blood Urea Nitrogen 11 mg/dL (9-16); Calcium 9.8 mg/dL (8.4-10.2); Carbon Dioxide 29 mmol/L (22-29); Chloride 103 mmol/L (96-108); Cholesterol 177 mg/dL (<200); Estimated Glomerular Filt Rate > 60; HDL Cholesterol 24 mg/dL (>40); Potassium 3.6 mmol/L (3.3-5.1); Sodium 141 mmol/L (135-145); Total Protein 7.5 g/dL (6.5-8.0); Triglycerides 236 mg/dL (<150)
== END 2025-02-25 13:31 | disposition home or self-care (01) ==
LOC: HO.HHCL 13:30
PROVIDERS: PCP Internal Medicine; Visit Provider Registered Nurse Psychiatric/Mental Health
DX: Z79.899 Other long term (current) drug therapy (principal)
CPT/HCPCS: 36415; 80053; 80061; 82248; 84443; 85025